=== PATIENT | female | born 1985 | race Caucasian/White ===

== ENCOUNTER 2016-12-07 22:47 | Outpatient (CLI) | payer MEDICAID ==
[~2016-12-07] VITALS: Ht 160 cm; Wt 100.0 kg
[~2016-12-07 22:47] MED LIST: HYDR-882 PO; LEVO88TA4 PO
== END 2016-12-08 | disposition home or self-care (01) ==
LOC: LDOP 22:47
PROVIDERS: ATTEND Obstetrics & Gynecology
DX: O26.893 Other specified pregnancy related conditions, third trimester (principal); O99.283 Endocrine, nutritional and metabolic diseases complicating pregnancy, third trimester; R10.9 Unspecified abdominal pain; E03.9 Hypothyroidism, unspecified; Z3A.29 29 weeks gestation of pregnancy
CPT/HCPCS: 59025; 81001; 87086; 99211; G0463

== ENCOUNTER 2017-01-08 11:47 | Outpatient (CLI) | payer MEDICAID ==
[~2017-01-08] VITALS: Ht 160 cm; Wt 101.8 kg
[2017-01-08 13:20] VITALS: BP 117/65
[2017-01-08] MEDS ORDERED: LEVO25TA2 PO (13:43)
[2017-01-08] MEDS ORDERED: PREN1TAB10 PO (13:43)
[2017-01-08 14:09] LABS: DAU SCREEN DISCLAIMER
== END 2017-01-08 14:00 | disposition home or self-care (01) ==
LOC: LDOP 11:47
PROVIDERS: ATTEND Obstetrics & Gynecology
DX: O42.913 Preterm premature rupture of membranes, unspecified as to length of time between rupture and onset of labor, third trimester (principal); O26.893 Other specified pregnancy related conditions, third trimester; O99.343 Other mental disorders complicating pregnancy, third trimester; O99.283 Endocrine, nutritional and metabolic diseases complicating pregnancy, third trimester; R10.2 Pelvic and perineal pain; F32.9 Major depressive disorder, single episode, unspecified; E07.9 Disorder of thyroid, unspecified; F17.200 Nicotine dependence, unspecified, uncomplicated; Z3A.34 34 weeks gestation of pregnancy
CPT/HCPCS: 59025; 80307; 87210; 87808; 89060; 99211; G0463; G0479; Q0114

== ENCOUNTER 2017-02-12 04:29 | Inpatient (IN) | payer MEDICAID ==
[~2017-02-12] VITALS: Ht 160 cm; Wt 104.5 kg
[~2017-02-12 04:29] MED LIST changes: +LEVO25TA2 PO; +PREN1TAB10 PO
[2017-02-12] MEDS ORDERED: NEWBORN KIT ONE (04:33)
[2017-02-12] MEDS ORDERED: OXYTOCIN 30U/ 0.9% NaCL 500ML 500 ML ONE ×2 (04:33→07:56)
[2017-02-12] MEDS ORDERED: OXYTOCIN 30U/ 0.9% NaCL 500ML 500 ML IV SCH (05:22)
[2017-02-12] MEDS ORDERED: LACTATED RINGERS 1,000 ML IV SCH ×2 (05:22→05:30)
[2017-02-12] MEDS ORDERED: ONDANSETRON 2MG/ML, 2ML ONE ×2 (05:26→07:16)
[2017-02-12] MEDS ORDERED: SODIUM CITRATE/CITRIC ACID 30 ML UDC ONE (05:26)
[2017-02-12] MEDS ORDERED: METOCLOPRAMIDE 5 MG/ML, 2ML ONE (05:26)
[2017-02-12] MEDS ORDERED: METOCLOPRAMIDE 5 MG/ML, 2ML IV ONE (05:30)
[2017-02-12] MEDS ORDERED: LACTATED RINGERS 1,000 ML IVBOLUS ONE (05:30)
[2017-02-12] MEDS ORDERED: ONDANSETRON 2MG/ML, 2ML IVPush ONE (05:30)
[2017-02-12] MEDS ORDERED: SODIUM CITRATE/CITRIC ACID 30 ML UDC PO ONE (05:30)
[2017-02-12 05:48] LABS: HEMATOCRIT 43.1 % (34.6-47.8); HEMOGLOBIN 14.8 g/dL (11.7-16.4); WHITE BLOOD COUNT 12.4 x10^3/uL (3.4-10)
[2017-02-12 06:07] VITALS: BP 132/83
[2017-02-12] MEDS ORDERED: LOPERAMIDE 1 MG/5 ML, 10ML UDC PO ONE (07:00)
[2017-02-12] MEDS ORDERED: OXYTOCIN 10 UNITS/ML, 1ML ONE (07:16)
[2017-02-12] MEDS ORDERED: CEFAZOLIN 1,000 MG ONE (07:16)
[2017-02-12] MEDS ORDERED: HYDROmorphone 2 MG/ML, 1ML ONE (07:17)
[2017-02-12] MEDS ORDERED: FENTANYL PF 100 MCG/2ML ONE (07:17)
[2017-02-12] MEDS ORDERED: MISOPROSTOL 200 MCG TABLET PR PRN (07:30)
[2017-02-12] MEDS ORDERED: OXYcodone/APAP 5/325MG TABLET PO PRN (07:30)
[2017-02-12] MEDS ORDERED: morphine SULFATE 10 MG/ML, 1ML IVPush PRN ×2 (07:30)
[2017-02-12] MEDS: LACTATED RINGERS 1,000 ML IV SCH ×5 (07:30→23:30)
[2017-02-12] MEDS ORDERED: ONDANSETRON 2MG/ML, 2ML IV PRN (07:30)
[2017-02-12] MEDS ORDERED: DIPH,PERTUSS(ACELL),TET VAC/PF NC IM-VACC PRN (07:30)
[2017-02-12] MEDS ORDERED: MEASLES,MUMPS&RUBELLA VACC/PF 0.5 ML SQ-VACC PRN (07:30)
[2017-02-12] MEDS ORDERED: ACETAMINOPHEN 325 MG TABLET PO PRN ×2 (07:30)
[2017-02-12] MEDS ORDERED: CALCIUM CARBONATE 500 MG TAB.CHEW PO PRN (07:30)
[2017-02-12] MEDS ORDERED: ATROPINE 0.4 MG/ML, 1ML ONE (08:12)
[2017-02-12] MEDS: PRENATAL VIT/IRON/FA 1 EACH TABLET PO SCH (09:00)
[2017-02-12] MEDS ORDERED: KETOROLAC 30 MG/1 ML ONE (09:40)
[2017-02-12] MEDS ORDERED: morphine SULFATE 10 MG/ML, 1ML ONE (09:41)
[2017-02-12] MEDS: KETOROLAC 30 MG/1 ML IV SCH ×3 (09:42→21:28)
[2017-02-12] MEDS: OXYTOCIN 30U/ 0.9% NaCL 500ML 500 ML IV SCH ×2 (10:01→17:30)
[2017-02-12 10:45] VITALS: BP 106/55
[2017-02-12] MEDS: OXYcodone/APAP 5/325MG TABLET PO PRN ×3 (13:45→22:37)
[2017-02-12 14:20] VITALS: BP 99/61
[2017-02-12] MEDS ORDERED: EPHEDRINE 50 MG/ML, 1ML ONE (15:44)
[2017-02-12 16:23] LABS: HEMATOCRIT 34.5 % (34.6-47.8); HEMOGLOBIN 11.7 g/dL (11.7-16.4); WHITE BLOOD COUNT 11.6 x10^3/uL (3.4-10)
[2017-02-12 19:30] VITALS: BP 98/61
[2017-02-13] VITALS: BP 97/61
[2017-02-13] MEDS: OXYTOCIN 30U/ 0.9% NaCL 500ML 500 ML IV SCH ×3 (03:30→23:30)
[2017-02-13] MEDS: LACTATED RINGERS 1,000 ML IV SCH ×6 (03:30→23:30)
[2017-02-13 04:25] VITALS: BP 104/70
[2017-02-13] MEDS: KETOROLAC 30 MG/1 ML IV SCH ×4 (04:25→23:00)
[2017-02-13] MEDS: OXYcodone/APAP 5/325MG TABLET PO PRN ×4 (04:25→19:00)
[2017-02-13 07:00] VITALS: BP 100/62
[2017-02-13] MEDS: DOCUSATE 100 MG CAPSULE PO PRN (08:45)
[2017-02-13] MEDS: PRENATAL VIT/IRON/FA 1 EACH TABLET PO SCH (08:45)
[2017-02-13 20:00] VITALS: BP 106/68
[2017-02-14] MEDS: IBUPROFEN 600 MG TABLET PO PRN ×4 (00:42→19:09)
[2017-02-14] MEDS: OXYcodone/APAP 5/325MG TABLET PO PRN ×5 (00:43→21:12)
[2017-02-14 06:40] VITALS: BP 108/67
[2017-02-14] MEDS: LACTATED RINGERS 1,000 ML IV SCH ×5 (07:30→23:30)
[2017-02-14] MEDS: DOCUSATE 100 MG CAPSULE PO PRN ×2 (08:10→21:12)
[2017-02-14] MEDS: PRENATAL VIT/IRON/FA 1 EACH TABLET PO SCH (08:13)
[2017-02-14] MEDS: OXYTOCIN 30U/ 0.9% NaCL 500ML 500 ML IV SCH ×2 (09:30→19:30)
[2017-02-14 20:12] VITALS: BP 98/67
[2017-02-14] MEDS: SIMETHICONE 80 MG CHEW TAB PO PRN (21:12)
[2017-02-15] MEDS: SIMETHICONE 80 MG CHEW TAB PO PRN (03:31)
[2017-02-15] MEDS: IBUPROFEN 600 MG TABLET PO PRN ×3 (03:31→19:40)
[2017-02-15] MEDS: OXYcodone/APAP 5/325MG TABLET PO PRN ×4 (03:31→19:40)
[2017-02-15] MEDS: OXYTOCIN 30U/ 0.9% NaCL 500ML 500 ML IV SCH ×2 (05:30→15:30)
[2017-02-15] MEDS: LACTATED RINGERS 1,000 ML IV SCH ×5 (05:30→23:30)
[2017-02-15] MEDS: DOCUSATE 100 MG CAPSULE PO PRN ×2 (07:57→19:40)
[2017-02-15] MEDS: PRENATAL VIT/IRON/FA 1 EACH TABLET PO SCH (09:00)
[2017-02-15 20:00] VITALS: BP 112/79
[2017-02-16] MEDS: LACTATED RINGERS 1,000 ML IV SCH ×3 (01:30→11:30)
[2017-02-16] MEDS: OXYTOCIN 30U/ 0.9% NaCL 500ML 500 ML IV SCH ×2 (01:30→11:30)
[2017-02-16] MEDS: IBUPROFEN 600 MG TABLET PO PRN ×3 (03:08→16:39)
[2017-02-16] MEDS: OXYcodone/APAP 5/325MG TABLET PO PRN ×4 (03:08→18:56)
[2017-02-16 08:10] VITALS: BP 110/72
[2017-02-16] MEDS: PRENATAL VIT/IRON/FA 1 EACH TABLET PO SCH (09:00)
[2017-02-16] MEDS: DOCUSATE 100 MG CAPSULE PO PRN (09:24)
[2017-02-16] MEDS ORDERED: OXYC-302 PO (12:41)
[2017-02-16] MEDS ORDERED: IBUP-1222 PO (12:41)
== END 2017-02-16 19:35 | disposition home or self-care (01) | DRG 766 ==
LOC: LDIP 04:29 → 2NW 10:38
PROVIDERS: ADMIT Obstetrics & Gynecology; ATTEND Obstetrics & Gynecology
PROC: 10D00Z1 Extraction of Products of Conception, Low, Open Approach (ICD-10-PCS; principal; 2017-02-12)
DX: O34.211 Maternal care for low transverse scar from previous cesarean delivery (principal); E03.9 Hypothyroidism, unspecified; Z37.0 Single live birth; O69.81X0 Labor and delivery complicated by cord around neck, without compression, not applicable or unspecified; O99.284 Endocrine, nutritional and metabolic diseases complicating childbirth; Z3A.39 39 weeks gestation of pregnancy
CPT/HCPCS: 36415; 82803; 85025; 86850; 86900; 87324; J0461; J0690; J1170; J1885; J2405; J3010; J2270; J2590; J2765; J7120

== ENCOUNTER 2017-05-26 00:47 | Emergency (ER) | payer MEDICAID ==
[~2017-05-26] VITALS: Ht 160 cm; Wt 86.4 kg
[~2017-05-26 00:47] MED LIST changes: +IBUP-1222 PO; +OXYC-302 PO
[2017-05-26 00:48] VITALS: BP 134/84
[2017-05-26 01:36] LABS: BASOPHILS # (AUTO) 0.02 x10^3/uL (0-0.1); BASOPHILS % (AUTO) 0 % (0-1); EOSINOPHILS # (AUTO) 0.21 x10^3/uL (0-0.4); EOSINOPHILS % (AUTO) 3 % (1-7); LYMPHOCYTES # (AUTO) 2.61 x10^3/uL (1-3.4); LYMPHOCYTES % (AUTO) 33 % (22-44); MD NO; MEAN CORPUSCULAR HEMOGLOBIN 30.7 pg (27.0-34.8); MEAN CORPUSCULAR HGB CONC 33.6 g/dL (32.4-35.8); MEAN CORPUSCULAR VOLUME 91.5 fL (80-100); MEAN PLATELET VOLUME 9.1 fL (7.4-10.4); MONOCYTES # (AUTO) 0.55 x10^3/uL (0.2-0.8); MONOCYTES % (AUTO) 7 % (2-9); NEUTROPHILS # (AUTO) 4.56 x10^3/uL (1.8-6.8); NEUTROPHILS % (AUTO) 57 % (42-75); PLATELET COUNT 186 x10^3/uL (130-400); RED BLOOD COUNT 4.47 x10^6/uL (3.82-5.3); RED CELL DISTRIBUTION WIDTH 12.5 % (9.6-15.2)
[2017-05-26 01:46] LABS: ALBUMIN 3.7 g/dL (3.4-5.0); ANION GAP 9 mmol/L (5-15); CALCIUM 8.3 mg/dL (8.5-10.1); CHLORIDE 107 mmol/L (98-107)
[2017-05-26 01:52] LABS: ALANINE AMINOTRANSFERASE 31 U/L (12-78); ALKALINE PHOSPHATASE 71 U/L (45-117); BILIRUBIN,TOTAL 0.4 mg/dL (0.2-1.0); CREATININE 0.94 mg/dL (0.55-1.02); TOTAL PROTEIN 7.4 g/dL (6.4-8.2)
[2017-05-26 02:11] LABS: MICROSCOPIC INDICATED
[2017-05-26 02:12] LABS: CULTURE INDICATED? YES
== END 2017-05-26 02:48 | disposition home or self-care (01) ==
LOC: ED 02:08
DX: K59.00 Constipation, unspecified (principal); K62.89 Other specified diseases of anus and rectum; K90.0 Celiac disease
CPT/HCPCS: 36415; 74021; 80053; 81001; 83690; 84703; 85025; 87086; 99285

== ENCOUNTER 2018-03-07 19:54 | Emergency (ER) | payer MEDICAID ==
[~2018-03-07] VITALS: Ht 160 cm; Wt 71.9 kg
[~2018-03-07 19:54] MED LIST changes: +HYDR-3653 PO; -HYDR-882 PO
[2018-03-07 20:48] LABS: BASOPHILS # (AUTO) 0.02 x10^3/uL (0-0.1); BASOPHILS % (AUTO) 0 % (0-1); EOSINOPHILS # (AUTO) 0.29 x10^3/uL (0-0.4); EOSINOPHILS % (AUTO) 4 % (1-7); LYMPHOCYTES % (AUTO) 30 % (22-44); MD NO; MEAN CORPUSCULAR HEMOGLOBIN 29.8 pg (27.0-34.8); MEAN CORPUSCULAR HGB CONC 33.5 g/dL (32.4-35.8); MEAN CORPUSCULAR VOLUME 88.9 fL (80-100); MEAN PLATELET VOLUME 8.9 fL (7.4-10.4); MONOCYTES # (AUTO) 0.61 x10^3/uL (0.2-0.8); MONOCYTES % (AUTO) 8 % (2-9); NEUTROPHILS # (AUTO) 4.76 x10^3/uL (1.8-6.8); NEUTROPHILS % (AUTO) 59 % (42-75); PLATELET COUNT 188 x10^3/uL (130-400); RED BLOOD COUNT 4.14 x10^6/uL (3.82-5.3); RED CELL DISTRIBUTION WIDTH 12.8 % (9.6-15.2)
[2018-03-07 21:00] LABS: ALANINE AMINOTRANSFERASE 17 U/L (12-78); ALBUMIN 3.1 g/dL (3.4-5.0); ANION GAP 5 mmol/L (5-15); CALCIUM 8.1 mg/dL (8.5-10.1); CHLORIDE 111 mmol/L (98-107); CREATININE 0.88 mg/dL (0.55-1.02)
[2018-03-07] MEDS ORDERED: CEFTRIAXONE 250 MG IM ONE (21:00)
[2018-03-07] MEDS ORDERED: AZITHROMYCIN 250 MG TABLET PO ONE (21:00)
[2018-03-07 21:05] LABS: ALKALINE PHOSPHATASE 69 U/L (45-117); BILIRUBIN,TOTAL 0.1 mg/dL (0.2-1.0)
[2018-03-07] MEDS ORDERED: OMNIPAQUE 350 MG/ML, 100ML BOTTLE ONE (21:18)
[2018-03-07] MEDS ORDERED: CEFTRIAXONE 250 MG ONE (22:02)
[2018-03-07] MEDS ORDERED: LIDOCAINE-MPF 1%, 2ML ONE (22:02)
[2018-03-07] MEDS ORDERED: AZITHROMYCIN 500 MG TABLET ONE (22:02)
[2018-03-07 22:06] LABS: CLUE CELLS NONE SEEN (NONE SEEN); WET PREP WBCS FEW (FEW)
[2018-03-07 22:09] VITALS: BP 115/79
[2018-03-07 22:36] LABS: MICROSCOPIC NOT IND
[2018-03-07 22:46] LABS: CULTURE INDICATED? NO
[2018-03-07] MEDS ORDERED: metroNIDAZOLE 500 MG TABLET ONE (22:47)
[2018-03-07] MEDS ORDERED: metroNIDAZOLE 500 MG TABLET PO ONE (23:00)
== END 2018-03-07 23:10 | disposition home or self-care (01) ==
LOC: ED 22:34
DX: K29.00 Acute gastritis without bleeding (principal); A59.9 Trichomoniasis, unspecified; E03.9 Hypothyroidism, unspecified; Z90.49 Acquired absence of other specified parts of digestive tract; Z87.891 Personal history of nicotine dependence; Z88.8 Allergy status to other drugs, medicaments and biological substances
CPT/HCPCS: 36415; 74177; 80053; 81003; 83690; 84703; 85025; 87210; 87491; 87591; 87808; 96372; 99284; J0696; Q9967

== ENCOUNTER 2018-09-08 17:38 | Emergency (ER) | payer MEDICAID ==
[~2018-09-08] VITALS: Ht 160 cm; Wt 70.4 kg
[2018-09-08] MEDS ORDERED: cipro (18:15)
[2018-09-08 18:23] VITALS: BP 120/75
--- NOTE | 2018-09-08 18:26 | NUR ---
PA AT BEDSIDE UPDATING PT ON POC. VITALS TAKEN, ASSESSMENT COMPLETED.
--- NOTE | 2018-09-08 18:36 | NUR ---
PT STATING SHE WOULD NOT LIKE THE SUGAR PLACED ON HER PROLAPSE AT THIS TIME.
== END 2018-09-08 19:51 | disposition home or self-care (01) ==
LOC: ED 19:45
DX: K62.3 Rectal prolapse (principal); N76.4 Abscess of vulva; E03.9 Hypothyroidism, unspecified
CPT/HCPCS: 99283

== ENCOUNTER 2018-09-11 19:43 | Emergency (ER) | payer MEDICAID, OTHER ==
[~2018-09-11] VITALS: Ht 160 cm; Wt 71.0 kg
[~2018-09-11 19:43] MED LIST changes: +cipro
--- NOTE | 2018-09-11 20:02 | NUR ---
assessment made. PA at bedside. rectal exam done. possible hemorrhoids.
--- NOTE | 2018-09-11 20:24 | NUR ---
patient to CT scan.
--- NOTE | 2018-09-11 20:32 | NUR ---
back from CT scan. awaiting result.
[2018-09-11 20:58] LABS: ALBUMIN 3.5 g/dL (3.4-5.0); ANION GAP 4 mmol/L (5-15); CALCIUM 8.7 mg/dL (8.5-10.1); CHLORIDE 108 mmol/L (98-107); CREATININE 0.82 mg/dL (0.55-1.02)
[2018-09-11] MEDS ORDERED: SODIUM CHLORIDE FLUSH 10ML SYR IVF ONE (21:00)
[2018-09-11] MEDS ORDERED: MORPHINE SULFATE 4 MG/ML, 1ML IVPush PRN (21:00)
[2018-09-11] MEDS ORDERED: ONDANSETRON 2MG/ML, 2ML IVPush ONE (21:00)
[2018-09-11 21:06] LABS: BASOPHILS # (AUTO) 0.01 x10^3/uL (0-0.1); BASOPHILS % (AUTO) 0 % (0-1); EOSINOPHILS # (AUTO) 0.38 x10^3/uL (0-0.4); EOSINOPHILS % (AUTO) 3 % (1-7); LYMPHOCYTES # (AUTO) 2.19 x10^3/uL (1-3.4); LYMPHOCYTES % (AUTO) 19 % (22-44); MD NO; MEAN CORPUSCULAR HEMOGLOBIN 27.8 pg (27.0-34.8); MEAN CORPUSCULAR HGB CONC 32.3 g/dL (32.4-35.8); MEAN PLATELET VOLUME 8.6 fL (7.4-10.4); MONOCYTES # (AUTO) 0.68 x10^3/uL (0.2-0.8); MONOCYTES % (AUTO) 6 % (2-9); NEUTROPHILS # (AUTO) 8.27 x10^3/uL (1.8-6.8); NEUTROPHILS % (AUTO) 72 % (42-75); PLATELET COUNT 213 x10^3/uL (130-400); RED BLOOD COUNT 4.51 x10^6/uL (3.82-5.3); RED CELL DISTRIBUTION WIDTH 15.4 % (9.6-15.2)
[2018-09-11] MEDS ORDERED: ONDANSETRON 2MG/ML, 2ML ONE (21:29)
[2018-09-11] MEDS ORDERED: MORPHINE SULFATE 4 MG/ML, 1ML ONE (21:29)
--- NOTE | 2018-09-11 21:47 | NUR ---
IV placed. medicated for pain.
[2018-09-11] MEDS ORDERED: PIPERACILLIN/TAZO/PMX 3.375GM 50 ML IVPB ONE (22:00)
[2018-09-11] MEDS ORDERED: AMOXICILLIN/CLAV 875-125MG TABLET PO ONE (22:00)
[2018-09-11] MEDS ORDERED: AMOXICILLIN/CLAV 875-125MG TABLET ONE (22:16)
--- NOTE | 2018-09-11 22:17 | NUR ---
REPORT RECEIVED FROM EFRA ROWAN.
[2018-09-11] MEDS ORDERED: PIPERACILLIN/TAZO/PMX 3.375GM 50 ML ONE (22:18)
[2018-09-11 22:23] VITALS: BP 111/74
--- NOTE | 2018-09-11 22:49 | NUR ---
PT AMB TO BR WITH STEADY GAIT.
[2018-09-11] MEDS ORDERED: IBUPROFEN 600 MG TABLET ONE (22:59)
[2018-09-11] MEDS ORDERED: IBUPROFEN 600 MG TABLET PO ONE (23:00)
--- NOTE | 2018-09-11 23:02 | NUR ---
pt medicated per emar for pain. pt tolerated well.
--- NOTE | 2018-09-11 23:07 | NUR ---
PT GIVEN DC INSTRUCTIONS AND SCRIPTS. PT EDUCATED REGARDING DC MEDICATIONS. PT'S AOX4. RESPS EVEN AND UNLABORED. NO ACUTE DISTRESS AT DC.
== END 2018-09-11 23:08 | disposition home or self-care (01) ==
LOC: ED 19:57
DX: K61.0 Anal abscess (principal); E03.9 Hypothyroidism, unspecified; Z90.89 Acquired absence of other organs; Z98.890 Other specified postprocedural states
CPT/HCPCS: 36415; 72193; 80048; 82040; 84703; 85025; 96365; 96375; 99284; J2270; J2405; J2543

== ENCOUNTER 2018-10-25 17:19 | Emergency (ER) | payer MEDICAID, OTHER ==
[~2018-10-25] VITALS: Ht 160 cm; Wt 72.7 kg
--- NOTE | 2018-10-25 17:30 | NUR ---
PT BIB [facility] [place] WHERE SHE HAD A SYNCOPAL EVENT AND FELL, HITTING THE BACK OF HER HEAD ON THE CONCRETE FLOOR. PT STATES SHE THINKS IT WAS BECAUSE OF THE FUMES IN THE [place]. PT ALSO ADMITS TO HAVING "A COUPLE SHOTS" EARLIER TODAY AND BEING OUT IN THE SUN WITHOUT EATING OR DRINKING MUCH. PT REGAINED CONSCIOUSNESS WITHIN A FEW SECONDS. EMS STATED THAT PT WAS REPETITIVE UPON THEIR ARRIVAL. VS PER EMS: 96/68, HR 86, 96% ON RA, BS 91. AN IV WAS STARTED AND PT WAS GIVEN 200ML BOLUS IMPLEMENTATION LEAD. ARRIVES TO ED A&OX4 BUT C/O SEVERE HEADACHE AND NAUSEA. BOYFRIEND AT BS. NO BRUISING/SWELLING OR WOUNDS NOTED TO BACK OF HEAD.
[2018-10-25] MEDS ORDERED: ACETAMINOPHEN 500 MG TABLET PO ONE (18:00)
--- NOTE | 2018-10-25 18:00 | NUR ---
C-COLLAR APPLIED PER ORDERS.
[2018-10-25] MEDS ORDERED: MORPHINE SULFATE 4 MG/ML, 1ML ONE (18:05)
[2018-10-25] MEDS ORDERED: ONDANSETRON 2MG/ML, 2ML ONE (18:05)
[2018-10-25 18:16] LABS: BASOPHILS # (AUTO) 0.03 x10^3/uL (0-0.1); BASOPHILS % (AUTO) 1 % (0-1); EOSINOPHILS # (AUTO) 0.16 x10^3/uL (0-0.4); EOSINOPHILS % (AUTO) 3 % (1-7); LYMPHOCYTES # (AUTO) 1.78 x10^3/uL (1-3.4); LYMPHOCYTES % (AUTO) 30 % (22-44); MD NO; MEAN CORPUSCULAR HEMOGLOBIN 28.9 pg (27.0-34.8); MEAN CORPUSCULAR HGB CONC 32.9 g/dL (32.4-35.8); MEAN CORPUSCULAR VOLUME 87.8 fL (80-100); MEAN PLATELET VOLUME 8.9 fL (7.4-10.4); MONOCYTES # (AUTO) 0.28 x10^3/uL (0.2-0.8); MONOCYTES % (AUTO) 5 % (2-9); NEUTROPHILS # (AUTO) 3.75 x10^3/uL (1.8-6.8); NEUTROPHILS % (AUTO) 63 % (42-75); PLATELET COUNT 170 x10^3/uL (130-400); RED BLOOD COUNT 4.26 x10^6/uL (3.82-5.3); RED CELL DISTRIBUTION WIDTH 15.6 % (9.6-15.2)
[2018-10-25 18:22] LABS: ALBUMIN 3.5 g/dL (3.4-5.0); ANION GAP 5 mmol/L (5-15); CALCIUM 8.3 mg/dL (8.5-10.1); CHLORIDE 111 mmol/L (98-107); CREATININE 0.86 mg/dL (0.55-1.02)
[2018-10-25] MEDS ORDERED: MORPHINE SULFATE 4 MG/ML, 1ML IVPush PRN (18:30)
[2018-10-25] MEDS ORDERED: ONDANSETRON 2MG/ML, 2ML IVPush ONE (18:30)
--- NOTE | 2018-10-25 18:30 | NUR ---
PT TO CT VIA [facility].
--- NOTE | 2018-10-25 19:47 | NUR ---
Break RN: water provided. patient discharged with prescriptions and instruction. verbalized understanding. assisted by back wedger and Boyfriend. wheeled to discharge area.
[2018-10-25 19:50] VITALS: BP 101/63
== END 2018-10-25 19:55 | disposition home or self-care (01) ==
LOC: ED 17:59
DX: S06.0X1A Concussion with loss of consciousness of 30 minutes or less, initial encounter (principal); R55 Syncope and collapse; R42 Dizziness and giddiness; E03.9 Hypothyroidism, unspecified; F17.200 Nicotine dependence, unspecified, uncomplicated; X58.XXXA Exposure to other specified factors, initial encounter; Y93.89 Activity, other specified; Y92.89 Other specified places as the place of occurrence of the external cause; Y99.8 Other external cause status
CPT/HCPCS: 36415; 70450; 72125; 80048; 82040; 85025; 93005; 96374; 96375; 99284; J2270; J2405

== ENCOUNTER 2019-04-08 19:18 | Outpatient (CLI) | payer SELFPAY ==
[~2019-04-08] VITALS: Ht 160 cm; Wt 78.6 kg
[2019-04-08 20:34] LABS: MICROSCOPIC AUTO
[2019-04-08 20:38] LABS: AMPHETAMINE SCREEN, URINE Positive (Negative); BARBITURATE SCREEN, URINE Negative (Negative); BENZODIAZEPINE SCREEN, URINE Negative (Negative); CANNABINOID SCREEN, URINE Negative (Negative); COCAINE SCREEN, URINE Negative (Negative); METHADONE SCREEN, URINE Negative (Negative); OPIATE SCREEN, URINE Negative (Negative)
[2019-04-08 20:52] LABS: BASOPHILS # (AUTO) 0.04 x10^3/uL (0-0.1); BASOPHILS % (AUTO) 0 % (0-1); EOSINOPHILS # (AUTO) 0.15 x10^3/uL (0-0.4); EOSINOPHILS % (AUTO) 2 % (1-7); LYMPHOCYTES # (AUTO) 2.48 x10^3/uL (1-3.4); LYMPHOCYTES % (AUTO) 27 % (22-44); MD NO; MEAN CORPUSCULAR HEMOGLOBIN 29.4 pg (27.0-34.8); MEAN CORPUSCULAR HGB CONC 33.2 g/dL (32.4-35.8); MEAN CORPUSCULAR VOLUME 88.3 fL (80-100); MEAN PLATELET VOLUME 8.5 fL (7.4-10.4); MONOCYTES # (AUTO) 0.68 x10^3/uL (0.2-0.8); MONOCYTES % (AUTO) 8 % (2-9); NEUTROPHILS # (AUTO) 5.78 x10^3/uL (1.8-6.8); NEUTROPHILS % (AUTO) 63 % (42-75); PLATELET COUNT 191 x10^3/uL (130-400); RED BLOOD COUNT 3.93 x10^6/uL (3.82-5.3); RED CELL DISTRIBUTION WIDTH 14.7 % (9.6-15.2)
[2019-04-08 21:22] LABS: ALANINE AMINOTRANSFERASE 17 U/L (12-78); ALBUMIN 2.6 g/dL (3.4-5.0); ANION GAP 5 mmol/L (5-15); CALCIUM 8.2 mg/dL (8.5-10.1); CHLORIDE 110 mmol/L (98-107); CREATININE 0.51 mg/dL (0.55-1.02)
[2019-04-08 21:24] LABS: ALKALINE PHOSPHATASE 55 U/L (45-117); BILIRUBIN,TOTAL 0.1 mg/dL (0.2-1.0); TOTAL PROTEIN 6.2 g/dL (6.4-8.2)
[2019-04-08] MEDS ORDERED: ACETAMINOPHEN 325 MG TABLET ONE (21:33)
[2019-04-08] MEDS ORDERED: ACETAMINOPHEN 325 MG TABLET PO PRN (22:00)
== END 2019-04-08 22:15 | disposition home or self-care (01) ==
LOC: LDOP 19:18
PROVIDERS: ATTEND Obstetrics & Gynecology
DX: O26.892 Other specified pregnancy related conditions, second trimester (principal); R11.0 Nausea; R51 Headache; Z3A.20 20 weeks gestation of pregnancy
CPT/HCPCS: 36415; 76805; 80053; 80307; 81001; 82150; 83690; 84550; 85025; 86592; 86762; 86850; 86900; 87086; 87340; 87806; 99211; G0463; G0475

== ENCOUNTER 2019-05-25 14:08 | Emergency (ER) | payer SELFPAY ==
[~2019-05-25] VITALS: Ht 160 cm; Wt 82.0 kg
--- NOTE | 2019-05-25 14:21 | NUR ---
[employer]ATELL[employer] INSTALLATION TECHNICIAN CALLED FOR CONSULT
[2019-05-25 15:30] LABS: ALANINE AMINOTRANSFERASE 15 U/L (12-78); ALBUMIN 2.2 g/dL (3.4-5.0); ANION GAP 6 mmol/L (5-15); CALCIUM 8.2 mg/dL (8.5-10.1); CHLORIDE 109 mmol/L (98-107); CREATININE 0.49 mg/dL (0.55-1.02)
[2019-05-25] MEDS ORDERED: SODIUM CHLORIDE 0.9% 1,000ML IVBOLUS ONE (15:30)
[2019-05-25] MEDS ORDERED: SODIUM CHLORIDE FLUSH 10ML SYR IVF ONE (15:30)
[2019-05-25] MEDS ORDERED: ONDANSETRON 2MG/ML, 2ML IVPush ONE (15:30)
[2019-05-25 15:32] LABS: ALKALINE PHOSPHATASE 68 U/L (45-117); BILIRUBIN,TOTAL 0.4 mg/dL (0.2-1.0); TOTAL PROTEIN 6.1 g/dL (6.4-8.2)
[2019-05-25] MEDS ORDERED: ONDANSETRON 2MG/ML, 2ML ONE (15:32)
[2019-05-25 15:33] LABS: BASOPHILS # (AUTO) 0.02 x10^3/uL (0-0.1); BASOPHILS % (AUTO) 0 % (0-1); EOSINOPHILS # (AUTO) 0.23 x10^3/uL (0-0.4); EOSINOPHILS % (AUTO) 2 % (1-7); LYMPHOCYTES # (AUTO) 1.86 x10^3/uL (1-3.4); LYMPHOCYTES % (AUTO) 19 % (22-44); MD NO; MEAN CORPUSCULAR HEMOGLOBIN 28.8 pg (27.0-34.8); MEAN CORPUSCULAR HGB CONC 33.7 g/dL (32.4-35.8); MEAN CORPUSCULAR VOLUME 85.5 fL (80-100); MEAN PLATELET VOLUME 8.5 fL (7.4-10.4); MONOCYTES # (AUTO) 0.63 x10^3/uL (0.2-0.8); MONOCYTES % (AUTO) 7 % (2-9); NEUTROPHILS # (AUTO) 6.83 x10^3/uL (1.8-6.8); NEUTROPHILS % (AUTO) 71 % (42-75); PLATELET COUNT 198 x10^3/uL (130-400); RED BLOOD COUNT 3.65 x10^6/uL (3.82-5.3); RED CELL DISTRIBUTION WIDTH 14.8 % (9.6-15.2)
[2019-05-25 16:39] LABS: MICROSCOPIC NOT IND
[2019-05-25 16:42] LABS: CULTURE INDICATED? NO
[2019-05-25 16:55] LABS: AMPHETAMINE SCREEN, URINE Positive (Negative); BARBITURATE SCREEN, URINE Negative (Negative); BENZODIAZEPINE SCREEN, URINE Negative (Negative); CANNABINOID SCREEN, URINE Negative (Negative); COCAINE SCREEN, URINE Negative (Negative); METHADONE SCREEN, URINE Negative (Negative); OPIATE SCREEN, URINE Negative (Negative)
[2019-05-25 17:50] VITALS: BP 132/81
== END 2019-05-25 17:52 | disposition home or self-care (01) ==
LOC: ED 15:08
DX: O21.2 Late vomiting of pregnancy (principal); O99.283 Endocrine, nutritional and metabolic diseases complicating pregnancy, third trimester; E86.0 Dehydration; E03.9 Hypothyroidism, unspecified; Z90.49 Acquired absence of other specified parts of digestive tract; Z3A.30 30 weeks gestation of pregnancy
CPT/HCPCS: 36415; 76700; 80053; 80307; 81003; 83690; 85025; 96361; 96374; 99285; J2405; J7030

== ENCOUNTER 2019-06-06 20:01 | Outpatient (CLI) | payer SELFPAY ==
[~2019-06-06] VITALS: Ht 160 cm; Wt 82.0 kg
[2019-06-06 20:49] LABS: MICROSCOPIC NOT IND
[2019-06-06] MEDS ORDERED: ACETAMINOPHEN 325 MG TABLET ONE (20:57)
[2019-06-06] MEDS ORDERED: ACETAMINOPHEN 325 MG TABLET PO PRN (21:00)
[2019-06-06 21:01] LABS: AMPHETAMINE SCREEN, URINE Negative (Negative); BARBITURATE SCREEN, URINE Negative (Negative); BENZODIAZEPINE SCREEN, URINE Negative (Negative); CANNABINOID SCREEN, URINE Negative (Negative); COCAINE SCREEN, URINE Negative (Negative); METHADONE SCREEN, URINE Negative (Negative); OPIATE SCREEN, URINE Negative (Negative)
== END 2019-06-06 22:25 | disposition home or self-care (01) ==
LOC: LDOP 20:01
PROVIDERS: ATTEND Student in an Organized Health Care Education/Training Program
DX: O26.893 Other specified pregnancy related conditions, third trimester (principal); R10.9 Unspecified abdominal pain; Z3A.28 28 weeks gestation of pregnancy
CPT/HCPCS: 59025; 80307; 81003; 87086; 99211; G0463

== ENCOUNTER 2019-06-16 07:22 | Emergency (ER) | payer MEDICAID ==
[~2019-06-16] VITALS: Ht 160 cm; Wt 91.5 kg
--- NOTE | 2019-06-16 07:37 | NUR ---
SPOKE WITH [facility] L[facility]D CHARGE NURSE. [facility] REQUESTED THAT THEY BE INFORMED WHEN PT GETS TO A ROOM SO A L&D NURSE CAN COME EXAMINE HER
--- NOTE | 2019-06-16 08:19 | NUR ---
REGISTERED DIET TECHNICIAN: PT TO ROOM FROM LOBBY
[2019-06-16 08:24] LABS: RAPID INFLUENZA A Negative (Negative); RAPID INFLUENZA B Negative (Negative)
--- NOTE | 2019-06-16 08:52 | NUR ---
L&D NOTIFIED OF PT PRESENCE IN ROOM.
--- NOTE | 2019-06-16 09:06 | NUR ---
FHT's by doppler 140, states fetus active
[2019-06-16 09:19] LABS: BASOPHILS # (AUTO) 0.04 x10^3/uL (0-0.1); BASOPHILS % (AUTO) 0 % (0-1); EOSINOPHILS # (AUTO) 0.13 x10^3/uL (0-0.4); EOSINOPHILS % (AUTO) 1 % (1-7); LYMPHOCYTES # (AUTO) 1.24 x10^3/uL (1-3.4); LYMPHOCYTES % (AUTO) 12 % (22-44); MD NO; MEAN CORPUSCULAR HEMOGLOBIN 26.7 pg (27.0-34.8); MEAN CORPUSCULAR HGB CONC 32.4 g/dL (32.4-35.8); MEAN CORPUSCULAR VOLUME 82.5 fL (80-100); MEAN PLATELET VOLUME 8.4 fL (7.4-10.4); MONOCYTES # (AUTO) 0.69 x10^3/uL (0.2-0.8); MONOCYTES % (AUTO) 7 % (2-9); NEUTROPHILS # (AUTO) 7.87 x10^3/uL (1.8-6.8); NEUTROPHILS % (AUTO) 79 % (42-75); PLATELET COUNT 196 x10^3/uL (130-400); RED BLOOD COUNT 3.62 x10^6/uL (3.82-5.3); RED CELL DISTRIBUTION WIDTH 15.1 % (9.6-15.2)
[2019-06-16 09:28] LABS: ALANINE AMINOTRANSFERASE 16 U/L (12-78); ALBUMIN 2.3 g/dL (3.4-5.0); ANION GAP 7 mmol/L (5-15); CALCIUM 7.8 mg/dL (8.5-10.1); CHLORIDE 109 mmol/L (98-107)
[2019-06-16 09:30] LABS: ALKALINE PHOSPHATASE 77 U/L (45-117); BILIRUBIN,TOTAL 0.2 mg/dL (0.2-1.0); CREATININE 0.52 mg/dL (0.55-1.02); TOTAL PROTEIN 6.1 g/dL (6.4-8.2)
[2019-06-16] MEDS ORDERED: ACETAMINOPHEN 325 MG TABLET PO ONE (09:30)
[2019-06-16] MEDS ORDERED: ACETAMINOPHEN 325 MG TABLET ONE (10:13)
[2019-06-16 10:28] LABS: MICROSCOPIC NOT IND
[2019-06-16 10:32] LABS: CULTURE INDICATED? NO
[2019-06-16 11:00] VITALS: BP 103/66
--- NOTE | 2019-06-16 11:00 | NUR ---
RECEIVED REPORT FROM ROBERT AGUILAR LAYING ON GURNEY WITH EYES CLOSED, RESPONDS APPROP TO STAFF, COMFORT MEASURES PROVIDED, CALL LIGHT WITHIN REACH.
--- NOTE | 2019-06-16 12:16 | NUR ---
Patient given discharge instructions and Rx, they have confirmed that they understand the instructions. Patient ambulatory with steady gait.
== END 2019-06-16 12:17 | disposition home or self-care (01) ==
LOC: ED 08:50
DX: O26.893 Other specified pregnancy related conditions, third trimester (principal); B34.9 Viral infection, unspecified; E03.9 Hypothyroidism, unspecified; Z3A.30 30 weeks gestation of pregnancy
CPT/HCPCS: 36415; 71046; 80053; 81003; 83690; 85025; 87081; 87400; 87880; 99284

== ENCOUNTER 2019-07-20 12:50 | Emergency (ER) | payer MEDICAID ==
[~2019-07-20] VITALS: Ht 160 cm; Wt 98.0 kg
[2019-07-20 13:18] LABS: BASOPHILS # (AUTO) 0.03 x10^3/uL (0-0.1); BASOPHILS % (AUTO) 0 % (0-1); EOSINOPHILS # (AUTO) 0.17 x10^3/uL (0-0.4); EOSINOPHILS % (AUTO) 2 % (1-7); LYMPHOCYTES # (AUTO) 2.05 x10^3/uL (1-3.4); LYMPHOCYTES % (AUTO) 21 % (22-44); MD NO; MEAN CORPUSCULAR HGB CONC 32.2 g/dL (32.4-35.8); MEAN CORPUSCULAR VOLUME 77.7 fL (80-100); MEAN PLATELET VOLUME 8.8 fL (7.4-10.4); MONOCYTES # (AUTO) 0.76 x10^3/uL (0.2-0.8); MONOCYTES % (AUTO) 8 % (2-9); NEUTROPHILS # (AUTO) 6.54 x10^3/uL (1.8-6.8); NEUTROPHILS % (AUTO) 69 % (42-75); PLATELET COUNT 205 x10^3/uL (130-400); RED BLOOD COUNT 3.85 x10^6/uL (3.82-5.3); RED CELL DISTRIBUTION WIDTH 16.6 % (9.6-15.2)
[2019-07-20 13:29] LABS: ALANINE AMINOTRANSFERASE 13 U/L (12-78); ALBUMIN 2.3 g/dL (3.4-5.0); ANION GAP 4 mmol/L (5-15); CALCIUM 7.9 mg/dL (8.5-10.1); CHLORIDE 109 mmol/L (98-107)
[2019-07-20 13:31] LABS: ALKALINE PHOSPHATASE 84 U/L (45-117); BILIRUBIN,TOTAL 0.1 mg/dL (0.2-1.0); CREATININE 0.53 mg/dL (0.55-1.02); TOTAL PROTEIN 6.3 g/dL (6.4-8.2)
--- NOTE | 2019-07-20 13:31 | NUR ---
BREAK RN: URINE SAMPLE WALKED TO LAB
[2019-07-20 13:46] LABS: MICROSCOPIC INDICATED
[2019-07-20 13:48] LABS: CULTURE INDICATED? YES
[2019-07-20 14:19] VITALS: BP 119/65
== END 2019-07-20 14:21 | disposition home or self-care (01) ==
LOC: ED 13:20
DX: O23.13 Infections of bladder in pregnancy, third trimester (principal); O99.283 Endocrine, nutritional and metabolic diseases complicating pregnancy, third trimester; R55 Syncope and collapse; E03.9 Hypothyroidism, unspecified; Z3A.35 35 weeks gestation of pregnancy; Z90.49 Acquired absence of other specified parts of digestive tract; Z88.2 Allergy status to sulfonamides
CPT/HCPCS: 36415; 80053; 81001; 85025; 87086; 93005; 99284

== ENCOUNTER 2019-08-13 05:41 | Inpatient (IN) | payer MEDICAID ==
[~2019-08-13] VITALS: Ht 160 cm; Wt 99.0 kg
[2019-08-13] MEDS ORDERED: NEWBORN KIT ONE (05:50)
[2019-08-13] MEDS ORDERED: METOCLOPRAMIDE 5 MG/ML, 2ML ONE (05:50)
[2019-08-13] MEDS ORDERED: SODIUM CITRATE/CITRIC ACID 30 ML UDC ONE (05:51)
[2019-08-13] MEDS ORDERED: OXYTOCIN 30U/ 0.9% NaCL 500ML 500 ML ONE (05:51)
[2019-08-13] MEDS ORDERED: METOCLOPRAMIDE 5 MG/ML, 2ML IV ONE (06:00)
[2019-08-13] MEDS ORDERED: ONDANSETRON 2MG/ML, 2ML IVPush ONE (06:00)
[2019-08-13] MEDS ORDERED: LACTATED RINGERS 1,000 ML IVBOLUS ONE (06:00)
[2019-08-13] MEDS ORDERED: SODIUM CITRATE/CITRIC ACID 30 ML UDC PO ONE (06:00)
[2019-08-13 06:33] VITALS: BP 114/66
[2019-08-13 07:01] LABS: BASOPHILS # (AUTO) 0.01 x10^3/uL (0-0.1); BASOPHILS % (AUTO) 0 % (0-1); EOSINOPHILS # (AUTO) 0.24 x10^3/uL (0-0.4); EOSINOPHILS % (AUTO) 2 % (1-7); LYMPHOCYTES # (AUTO) 2.02 x10^3/uL (1-3.4); LYMPHOCYTES % (AUTO) 19 % (22-44); MD NO; MEAN CORPUSCULAR HEMOGLOBIN 24.7 pg (27.0-34.8); MEAN CORPUSCULAR VOLUME 74.8 fL (80-100); MEAN PLATELET VOLUME 9.1 fL (7.4-10.4); MONOCYTES # (AUTO) 0.91 x10^3/uL (0.2-0.8); MONOCYTES % (AUTO) 9 % (2-9); NEUTROPHILS # (AUTO) 7.31 x10^3/uL (1.8-6.8); NEUTROPHILS % (AUTO) 70 % (42-75); PLATELET COUNT 188 x10^3/uL (130-400); RED BLOOD COUNT 3.66 x10^6/uL (3.82-5.3); RED CELL DISTRIBUTION WIDTH 17.1 % (9.6-15.2)
[2019-08-13 07:09] LABS: AMPHETAMINE SCREEN, URINE Negative (Negative); BARBITURATE SCREEN, URINE Negative (Negative); BENZODIAZEPINE SCREEN, URINE Negative (Negative); CANNABINOID SCREEN, URINE Negative (Negative); COCAINE SCREEN, URINE Negative (Negative); METHADONE SCREEN, URINE Negative (Negative); OPIATE SCREEN, URINE Negative (Negative)
[2019-08-13] MEDS ORDERED: OXYTOCIN 10 UNITS/ML, 1ML ONE (07:14)
[2019-08-13] MEDS ORDERED: KETOROLAC 30 MG/1 ML ONE (07:14)
[2019-08-13] MEDS ORDERED: ONDANSETRON 2MG/ML, 2ML ONE (07:14)
[2019-08-13] MEDS ORDERED: PHENYLEPHRINE 10 MG/ML ONE (07:14)
[2019-08-13] MEDS ORDERED: EPHEDRINE 50 MG/ML, 1ML ONE (07:14)
[2019-08-13] MEDS ORDERED: CEFAZOLIN 1,000 MG ONE (07:14)
[2019-08-13] MEDS ORDERED: FENTANYL PF 100 MCG/2ML ONE (07:14)
[2019-08-13] MEDS ORDERED: DEXAMETHASONE 4 MG/ML, 1ML ONE (07:14)
[2019-08-13] MEDS: LACTATED RINGERS 1,000 ML IV SCH ×5 (07:22→23:22)
[2019-08-13] MEDS ORDERED: MORPHINE SULFATE 4 MG/ML, 1ML IVPush PRN (07:30)
[2019-08-13] MEDS ORDERED: FENTANYL PF 100 MCG/2ML IV PRN (07:30)
[2019-08-13] MEDS ORDERED: MEPERIDINE/PF 25MG/0.5ML IVPush PRN (07:30)
[2019-08-13] MEDS ORDERED: DIPH,PERTUSS(ACELL),TET VAC/PF NC IM-VACC PRN (07:30)
[2019-08-13] MEDS ORDERED: CALCIUM CARBONATE 500 MG TAB.CHEW PO PRN (07:30)
[2019-08-13] MEDS ORDERED: MISOPROSTOL 200 MCG TABLET PR PRN (07:30)
[2019-08-13] MEDS ORDERED: hydrALAzine 20 MG/ML, 1ML IV PRN (07:30)
[2019-08-13] MEDS ORDERED: morphine SULFATE 10 MG/ML, 1ML IVPush PRN (07:30)
[2019-08-13] MEDS ORDERED: ACETAMINOPHEN 325 MG TABLET PO PRN ×2 (07:30)
[2019-08-13] MEDS ORDERED: ONDANSETRON 2MG/ML, 2ML IV PRN (07:30)
[2019-08-13] MEDS ORDERED: EPHEDRINE 50 MG/ML, 1ML IVPush PRN (07:30)
[2019-08-13] MEDS ORDERED: OXYcodone/APAP 5/325MG TABLET PO PRN (07:30)
[2019-08-13] MEDS ORDERED: PROMETHAZINE 25 MG/ML, 1ML IV PRN (07:30)
[2019-08-13] MEDS ORDERED: HYDROcodone/APAP 7.5-325MG/15ML UDC PO PRN (07:30)
[2019-08-13] MEDS ORDERED: MEASLES,MUMPS&RUBELLA VACC/PF 0.5 ML SQ-VACC PRN (07:30)
[2019-08-13] MEDS ORDERED: MIDAZOLAM 1 MG/ML, 2ML IV PRN (07:30)
[2019-08-13] MEDS ORDERED: HYDROmorphone 2 MG/ML, 1ML IVPush PRN (07:30)
[2019-08-13] MEDS ORDERED: ALBUTEROL SULFATE 2.5 MG/3 ML NPPB PRN (07:30)
[2019-08-13] MEDS ORDERED: OXYcodone 5 MG/5 ML ORAL.SOL UDC PO PRN (07:30)
[2019-08-13] MEDS ORDERED: RHOGAM FROM BLOOD BANK 1 NOTE EA IM/IV ONE (07:30)
[2019-08-13] MEDS ORDERED: LABETALOL 5MG/ML, 20ML IV PRN (07:30)
[2019-08-13] MEDS ORDERED: ONDANSETRON 2MG/ML, 2ML IVPush PRN (07:30)
[2019-08-13] MEDS ORDERED: HYDROmorphone 2 MG/ML, 1ML ONE (08:08)
[2019-08-13] MEDS: PRENATAL VIT/IRON/FA 1 EACH TABLET PO SCH (09:00)
[2019-08-13] MEDS ORDERED: OXYcodone 5 MG/5 ML ORAL.SOL UDC ONE (10:05)
[2019-08-13] MEDS: OXYTOCIN 30U/ 0.9% NaCL 500ML 500 ML IV SCH ×2 (10:28→17:22)
[2019-08-13 10:45] VITALS: BP 130/78
[2019-08-13] MEDS: OXYcodone/APAP 5/325MG TABLET PO PRN ×2 (14:28→20:21)
[2019-08-13] MEDS: KETOROLAC 30 MG/1 ML IV SCH ×3 (14:28→20:30)
[2019-08-13 16:00] VITALS: BP 128/72
[2019-08-13 16:09] LABS: BASOPHILS % (AUTO) 0 % (0-1); EOSINOPHILS # (AUTO) 0.11 x10^3/uL (0-0.4); EOSINOPHILS % (AUTO) 1 % (1-7); LYMPHOCYTES # (AUTO) 1.35 x10^3/uL (1-3.4); LYMPHOCYTES % (AUTO) 10 % (22-44); MD NO; MEAN CORPUSCULAR HEMOGLOBIN 24.2 pg (27.0-34.8); MEAN CORPUSCULAR HGB CONC 32.3 g/dL (32.4-35.8); MEAN PLATELET VOLUME 8.7 fL (7.4-10.4); MONOCYTES # (AUTO) 0.77 x10^3/uL (0.2-0.8); MONOCYTES % (AUTO) 5 % (2-9); NEUTROPHILS # (AUTO) 11.95 x10^3/uL (1.8-6.8); NEUTROPHILS % (AUTO) 84 % (42-75); PLATELET COUNT 176 x10^3/uL (130-400); RED BLOOD COUNT 3.48 x10^6/uL (3.82-5.3); RED CELL DISTRIBUTION WIDTH 17.2 % (9.6-15.2)
[2019-08-13 20:00] VITALS: BP 111/71
[2019-08-14] VITALS: BP 105/68
[2019-08-14] MEDS: KETOROLAC 30 MG/1 ML IV SCH ×4 (02:24→20:53)
[2019-08-14] MEDS: OXYcodone/APAP 5/325MG TABLET PO PRN ×5 (02:25→21:08)
[2019-08-14] MEDS: OXYTOCIN 30U/ 0.9% NaCL 500ML 500 ML IV SCH ×3 (03:22→23:22)
[2019-08-14] MEDS: LACTATED RINGERS 1,000 ML IV SCH ×6 (03:22→23:22)
[2019-08-14 05:00] VITALS: BP 104/67
[2019-08-14] MEDS: PRENATAL VIT/IRON/FA 1 EACH TABLET PO SCH (08:32)
[2019-08-14] MEDS: DOCUSATE 100 MG CAPSULE PO PRN ×2 (08:32→20:53)
[2019-08-14 09:45] VITALS: BP 105/68
[2019-08-14 20:00] VITALS: BP 116/74
[2019-08-15] MEDS: OXYcodone/APAP 5/325MG TABLET PO PRN ×5 (04:02→22:32)
[2019-08-15] MEDS: IBUPROFEN 600 MG TABLET PO PRN ×3 (06:19→18:14)
[2019-08-15] MEDS: SIMETHICONE 80 MG CHEW TAB PO PRN ×3 (06:20→22:32)
[2019-08-15] MEDS ORDERED: IBUPROFEN 200 MG TABLET PO PRN (06:30)
[2019-08-15] MEDS: LACTATED RINGERS 1,000 ML IV SCH ×5 (07:22→23:22)
[2019-08-15 07:50] VITALS: BP 106/69
[2019-08-15] MEDS: DOCUSATE 100 MG CAPSULE PO PRN ×2 (08:12→22:32)
[2019-08-15] MEDS: PRENATAL VIT/IRON/FA 1 EACH TABLET PO SCH (08:12)
[2019-08-15] MEDS: OXYTOCIN 30U/ 0.9% NaCL 500ML 500 ML IV SCH ×2 (09:22→19:22)
[2019-08-15 20:00] VITALS: BP 110/72
[2019-08-16] MEDS: IBUPROFEN 600 MG TABLET PO PRN ×2 (00:34→06:43)
[2019-08-16] MEDS: OXYTOCIN 30U/ 0.9% NaCL 500ML 500 ML IV SCH (05:22)
[2019-08-16] MEDS: LACTATED RINGERS 1,000 ML IV SCH ×2 (05:22→07:22)
[2019-08-16] MEDS: OXYcodone/APAP 5/325MG TABLET PO PRN ×2 (06:43→11:17)
[2019-08-16] MEDS: SIMETHICONE 80 MG CHEW TAB PO PRN (08:38)
[2019-08-16] MEDS: DOCUSATE 100 MG CAPSULE PO PRN (08:38)
[2019-08-16] MEDS: PRENATAL VIT/IRON/FA 1 EACH TABLET PO SCH (08:38)
[2019-08-16 08:54] VITALS: BP 127/85
[2019-08-16] MEDS ORDERED: OXYC-302 PO (13:15)
[2019-08-16] MEDS ORDERED: IBUP-1222 PO (13:15)
== END 2019-08-16 14:30 | disposition home or self-care (01) | DRG 788 ==
LOC: LDIP 05:41 → 2NW 10:38
PROVIDERS: ADMIT Obstetrics & Gynecology; ATTEND Obstetrics & Gynecology
PROC: 10D00Z1 Extraction of Products of Conception, Low, Open Approach (ICD-10-PCS; principal; 2019-08-13)
DX: O34.211 Maternal care for low transverse scar from previous cesarean delivery (principal); Z37.0 Single live birth; Z3A.39 39 weeks gestation of pregnancy
CPT/HCPCS: 36415; 80307; 85025; 86592; 86850; 86900; G0378; J0690; J1100; J1170; J1885; J2405; J3010; J2370; J2590; J2765; J7120

== ENCOUNTER 2020-02-11 19:38 | Emergency (ER) | payer MEDICAID ==
[~2020-02-11] VITALS: Ht 160 cm; Wt 91.0 kg
[2020-02-11 19:41] VITALS: BP 121/82
== END 2020-02-11 20:18 | disposition home or self-care (01) ==
LOC: ED 20:00
DX: K08.89 Other specified disorders of teeth and supporting structures (principal); E03.9 Hypothyroidism, unspecified; F17.200 Nicotine dependence, unspecified, uncomplicated; Z90.89 Acquired absence of other organs
CPT/HCPCS: 99283